=== PATIENT | male | born 1955 | race Asian ===

== ENCOUNTER 2022-10-08 19:17 | Inpatient (IN) | payer MEDICAID ==
[~2022-10-08] VITALS: Ht 160 cm; Wt 63.5 kg
[2022-10-08 19:35] VITALS: BP 168/86
--- NOTE | 2022-10-08 20:00 | NUR ---
MULTI LINE CLAIMS ADJUSTERFLIGHT DYNAMICIST NOTE ADMITTED THIS PATIENT DIRECTLY FROM [facility] VIA GURNEY WITH 2 EMT OF PRN AMBULANCE @ 193. PATIENT IS AMBULATORY. PATIENT IS AWAKE, ALERT AND ORIENTED X 4. INITIAL VS TAKEN FOLLOWS: TEMP 98.3, WI 91, RR 20, O2 SAT 100%, BP 168/86. BREATHING EVEN AND NONLABORED. NOT IN ANY FORM OF RESPIRATORY OR CARDIAC DISTRESS. DENIES ANY PAIN OR DISCOMFORT. WITH IV ACCESS ON LEFT AC 20g; PATENT, INTACT AND SALINE LOCKED. BODY AND SKIN ASSESSMENT DONE. SKIN IS INTACT. ABLE TO VERBALIZE NEEDS. INVENTORY OF PERSONAL BELONGINGS DONE. ORIENTED TO STAFF, ROOM AND UNIT. SAFETY PRECAUTIONS IMPLEMENTED: CALL LIGHT AND TABLE WITHIN REACH, SIDE RAILS UP X 3, BED IN LOWEST LOCKED POSITION. WILL CONTINUE TO MONITOR THROUGHOUT SHIFT. Addendum: 10/09/22 at 0352 by HARESH NAIK RN PATIENT PLACED ON EXTERNAL CARDIAC MONITORING WHICH READS SINUS RHYTHM WITH PVCs HR-85 BPM.
[2022-10-08] MEDS ORDERED: IV 1/2NS 1000 ML 1,000 ML IV PRN (21:30)
[2022-10-08] MEDS ORDERED: ACETAMINOPHEN 325 MG TABLET PO PRN (21:30)
[2022-10-08] MEDS ORDERED: ZOLPIDEM TARTRATE 5 MG TABLET PO PRN (21:30)
[2022-10-08] MEDS ORDERED: ONDANSETRON HCL/PF 4 MG/2 ML VIAL IVP PRN (21:30)
[2022-10-08] MEDS ORDERED: MAGNESIUM HYDROXIDE 30 ML UDC PO PRN (21:30)
[2022-10-08] MEDS ORDERED: MAG HYDROX/AL HYDROX/SIMETH 30 ML UDC PO PRN (21:30)
[2022-10-08] MEDS ORDERED: Z GUARD REMEDY 4 OZ OINT TP PRN (21:30)
[2022-10-08] MEDS: hydrALAZINE HCL 25 MG TABLET PO PRN (22:03)
--- NOTE | 2022-10-08 22:03 | NUR ---
RN Note BP 165/88 mm hg, HR-85. PRN Hydralazine 25 mg given po as ordered. Will continue to monitor.
[2022-10-08 22:12] LABS: CALCIUM, SERUM 9.2 mg/dL (8.5-10.1); POTASSIUM 4.6 mmol/L (3.5-5.1)
--- NOTE | 2022-10-08 22:45 | NUR ---
RN Note BP rechecked - 151/73 mm hg.
[2022-10-09] VITALS (7 sets, daily range): BP systolic 75–176; BP diastolic 41–95
[2022-10-09] MEDS ORDERED: DEXTROSE 50%-WATER 50 ML DISP.SYRIN IV PRN
[2022-10-09] MEDS: hydrALAZINE HCL 25 MG TABLET PO PRN (06:20)
--- NOTE | 2022-10-09 06:20 | NUR ---
RN Note BP 185/97 mm hg, HR-87. PRN Hydralazine 25 mg given po as ordered. Will continue to monitor.
[2022-10-09] MEDS: BLOOD SUGAR DIAGNOSTIC 1 EACH STRIP VI SCH ×4 (06:29→22:05)
--- NOTE | 2022-10-09 07:05 | NUR ---
LINER MACHINE OPERATOR HELPER CLOSING NOTE PATIENT IN BED; AWAKE, A/O X 4. STABLE ON ROOM AIR. BREATHING EVEN AND NONLABORED. IN NO ACUTE DISTRESS. NO C/O PAIN OR DISCOMFORT AT THIS TIME. WITH IV ACCESS ON LEFT AC 20g; PATENT AND INTACT INFUSING WITH 0.45% NS 1L RUNNING @ 75 ML/HR; FLUSHES WELL. ALL NEEDS ATTENDED. SAFETY PRECAUTIONS MAINTAINED: CALL LIGHT AND TABLE WITHIN REACH, SIDE RAILS UP X 3, BED IN LOWEST LOCKED POSITION. ENDORSED TO MORNING SHIFT FOR CONTINUITY OF CARE. Addendum: 10/09/22 at 0707 by HARESH NAIK RN ON EXTERNAL MALARIOLOGIST WHICH READS SR WITH PVCs HR-91 BPM.
[2022-10-09 07:29] LABS: BASOPHILS % (AUTO) 0.5 % (0.0-2.0); EOSINOPHILS % (AUTO) 2.1 % (0.0-6.0); HEMATOCRIT 35 % (39-51); HEMOGLOBIN 11.1 g/dL (13.5-17.5); LYMPHOCYTES # (AUTO) 2.5 K/uL (0.8-4.8); LYMPHOCYTES % (AUTO) 27.6 % (20.0-44.0); MEAN CORPUSCULAR HGB CONC 32 g/dl (31.0-36.0); MEAN CORPUSCULAR VOLUME 94 fL (80-96); MONOCYTES # (AUTO) 0.7 K/uL (0.1-1.30); MONOCYTES % (AUTO) 8.3 % (2.0-12.0); NEUTROPHILS # (AUTO) 5.5 K/uL (1.8-8.9); NEUTROPHILS % (AUTO) 61.5 % (43.0-81.0); PLATELET COUNT (AUTO) 280 K/uL (150-450); RED BLOOD CELL COUNT(AUTO) 3.68 MIL/uL (4.5-6.0)
--- NOTE | 2022-10-09 07:30 | NUR ---
OBJECT ORIENTED PROGRAMMER OPENING NOTE RECEIVED PATIENT AWAKE, LYING IN BED. PATIENT IS ON ROOM AIR, NO S/S OF DISTRESS OR SOB, AO X4. PT HAS IV ACCESS AT HIS LAC #20G WITH 0.45 NS AT 75 ML/HOUR INFUSING WELL. PATIENT HAS EXTERNAL RADIOLOGY PHYSICIAN ASSISTANT ATTACHED WITH PVC AND HR 92 BPM. BED LOCKED IN THE LOWEST POSITION. CALL LIGHT AND TABLE IN EASY REACH. SIDE RAILS UP X2. BED ALARM ON. WILL CONTINUE TO MONITOR CLOSELY FOR ANY REJI AND ASSIST PATIENT WITH IMMEDIATE NEEDS.
[2022-10-09 07:40] LABS: CALCIUM, SERUM 9.1 mg/dL (8.5-10.1); MAGNESIUM 2.1 mg/dL (1.8-2.4); POTASSIUM 4.5 mmol/L (3.5-5.1)
[2022-10-09 07:50] LABS: PHOSPHORUS 6.8 mg/dL (2.5-4.9)
[2022-10-09 07:51] LABS: THYROID STIMULATING HORMONE 2.711 uIU/mL (0.358-3.74)
[2022-10-09 07:52] LABS: CREATININE 7.8 mg/dL (0.6-1.3)
--- NOTE | 2022-10-09 08:00 | NUR ---
RN NOTE WRONG ENTRY ON THE ORTHOSTATIC BP VITAL SIGNS LONG FORM. KINDLY DISREGARD
[2022-10-09] MEDS: PANTOPRAZOLE 40 MG TABLET.DR PO SCH (08:25)
[2022-10-09] MEDS: AMLODIPINE BESYLATE 10 MG TABLET PO SCH (08:25)
[2022-10-09 12:14] LABS: BACTERIA,URINE Rare /HPF (None Seen); BILIRUBIN,URINE NEGATIVE (NEGATIVE); COLOR,URINE YELLOW (YELLOW); CREATININE, URINE 49.6 MG/DL (30.0-125.0); LEUKOCYTE ESTERASE ,URINE NEGATIVE (NEGATIVE); NITRITE, URINE NEGATIVE (NEGATIVE); PROTEIN,URINE 3+ mg/dl (NEGATIVE); RBC,URINE 0-2 /HPF (0-2); SQUAMOUS EPITHELIAL CELL,UR Few /HPF (None Seen); UGLUCOSE TRACE mg/dL (NEGATIVE); UROBILINOGEN,URINE 0.2 EU/dL (0.2); WBC,URINE 0-2 /HPF (0-3)
[2022-10-09] MEDS: IV 1/2NS 1000 ML 1,000 ML IV PRN ×2 (13:06→23:58)
--- NOTE | 2022-10-09 18:04 | NUR ---
RN NOTE PATIENT'S FAMILY IS REQUESTING AN UPDATE. INFORMED DR MENDIETA VIA TEXT TO CALL SUSY (BROTHER) THROUGH [phone].
--- NOTE | 2022-10-09 18:38 | NUR ---
SLEEPING CAR SERVICE ATTENDANT CLOSING NOTE PATIENT AWAKE, LYING IN BED. PATIENT IS IN ROOM AIR, NO S/S OF DISTRESS OR SOB, AO X3. PT HAS IV ACCESS AT HIS LAC #20G WITH 1/2 NS AT 100 ML/HOUR INFUSING WELL. . DRUG ENFORCEMENT AGENT ATTACHED WITH SINUS RHYTHM WITH PVC WITH HR AT 93BPM. ORTHOSTATIC BP TAKEN. ALL MEDICATIONS GIVEN. ALL NEEDS ATTENDED AND ANTICIPATED.ALL SAFETY MEASURES MAINTAINED: BED IN LOWEST AND LOCKED POSITION, SIDE RAILS UP X3. CALL LIGHT WITHIN REACH. BED ALARM ON. WILL ENDORSE TO PROTOCOL OFFICER NURSE.
--- NOTE | 2022-10-09 19:30 | NUR ---
DOCUMENTATION ANALYST OPENING NOTE RECEIVED PT AWAKE IN BED. A/O X4 AND ABLE TO MAKE NEEDS KNOWN. PT STABLE ON ROOM AIR. NO SOB OR S/S OS RESPIRATORY DISTRESS. BREATHING EVEN AND UNLABORED. ON EXTERNAL PUBLIC HEALTH SERVICE OFFICER READING SR WITH PVCS 97 BPM. IV ACCESS LAC 20G, INTACT AND PATENT, RUNNING 1/2 NS @ 75 ML/HR. SAFETY PRECAUTIONS IN PLACE. BED IN LOWEST LOCKED POSITION, HOB ELEVATED, SIDE RAILS UP X2, AND CALL LIGHT AND TABLE WITHIN REACH. ALL NEEDS MET AT THIS TIME.
[2022-10-09] MEDS: *INSULIN REGULAR(HUMULIN R)HUM 100 UNIT/ML VIAL SQ PRN (22:06)
[2022-10-10] VITALS (7 sets, daily range): BP systolic 127–180; BP diastolic 84–99
--- NOTE | 2022-10-10 00:42 | NUR ---
RN NOTE SEISMOGRAPH OBSERVER AT BEDSIDE FOR HD PLACEMENT.
[2022-10-10] MEDS: hydrALAZINE HCL 25 MG TABLET PO PRN ×2 (05:19→20:04)
--- NOTE | 2022-10-10 06:36 | NUR ---
CARE TRANSITIONS MANAGER CLOSING NOTE PT RESTING IN BED, VERBALLY RESPONSIVE. A/O X4 AND ABLE TO MAKE NEEDS KNOWN. PT STABLE ON ROOM AIR. NO SOB OR S/S OS RESPIRATORY DISTRESS. BREATHING EVEN AND UNLABORED. ON EXTERNAL OYSTER FARMER READING SR WITH PVCS 93 BPM. IV ACCESS LAC 20G, INTACT AND PATENT, RUNNING 1/2 NS @ 75 ML/HR. WITH RIJ HD CATH, DRESSING C/D/I. ALL DUE MEDS GIVEN ORDERED. SAFETY PRECAUTIONS IN PLACE AT ALL TIMES. BED IN LOWEST LOCKED POSITION, HOB ELEVATED, SIDE RAILS UP X2, AND CALL LIGHT AND TABLE WITHIN REACH. ALL NEEDS MET AT THIS TIME AND WILL ENDORSE TO ONCOMING NURSE FOR REJI.
--- NOTE | 2022-10-10 07:20 | NUR ---
MS RN RECEIVED ON BED, AWAKE,ALERT,ORIENTED X4,NOT IN ANY FORM OF DISTRESS,ON ROOM AIR, RESPIRATIONS EVEN AND UNLABORED,NO SOB NOTED, ACUTE KIDNEY INJURY, HEMODIALYSIS ACCESS AT RIGHT JUGULAR VEIN, FOR HEMODIALYSIS TODAY, WILL MONITOR PATIENT'S CONDITION,ALL NEEDS ATTENDED.
[2022-10-10] MEDS: BLOOD SUGAR DIAGNOSTIC 1 EACH STRIP VI SCH ×4 (07:58→21:04)
[2022-10-10] MEDS: PANTOPRAZOLE 40 MG TABLET.DR PO SCH (07:58)
--- NOTE | 2022-10-10 08:00 | NUR ---
MS [place] BREAKFAST SERVED,DUE MEDS GIVEN,TOLERATED WELL.
[2022-10-10 08:27] LABS: BASOPHILS % (AUTO) 0.4 % (0.0-2.0); EOSINOPHILS % (AUTO) 1.2 % (0.0-6.0); HEMATOCRIT 32 % (39-51); HEMOGLOBIN 10.6 g/dL (13.5-17.5); LYMPHOCYTES # (AUTO) 2.9 K/uL (0.8-4.8); LYMPHOCYTES % (AUTO) 22.9 % (20.0-44.0); MEAN CORPUSCULAR HGB CONC 33 g/dl (31.0-36.0); MEAN CORPUSCULAR VOLUME 92 fL (80-96); MONOCYTES % (AUTO) 7.5 % (2.0-12.0); NEUTROPHILS # (AUTO) 8.7 K/uL (1.8-8.9); PLATELET COUNT (AUTO) 275 K/uL (150-450); RED BLOOD CELL COUNT(AUTO) 3.48 MIL/uL (4.5-6.0); WHITE BLOOD COUNT (AUTO) 12.7 K/uL (4.3-11.0)
[2022-10-10 08:38] LABS: PHOSPHORUS 6.5 mg/dL (2.5-4.9); POTASSIUM 4.1 mmol/L (3.5-5.1)
[2022-10-10 08:39] LABS: CREATININE 7.7 mg/dL (0.6-1.3)
[2022-10-10] MEDS: AMLODIPINE BESYLATE 10 MG TABLET PO SCH (08:47)
[2022-10-10] MEDS ORDERED: CARV6.252 PO (11:32)
[2022-10-10] MEDS ORDERED: FEBU40TA3 PO (11:32)
[2022-10-10] MEDS ORDERED: FENO200C PO (11:32)
[2022-10-10] MEDS ORDERED: INSU100I26 SQ (11:32)
[2022-10-10] MEDS ORDERED: MULT-1215 PO (11:32)
[2022-10-10] MEDS ORDERED: LINA5TAB PO (11:32)
[2022-10-10] MEDS ORDERED: SODI650T PO (11:32)
[2022-10-10] MEDS ORDERED: [UNRECOGNIZED DRUG - OTHER] PO (11:34)
--- NOTE | 2022-10-10 16:00 | NUR ---
ms tax attorney done w/ 1 liter out, tolerated well.
--- NOTE | 2022-10-10 19:08 | NUR ---
RN opening notes Pt is sitting in bed comfortably watching TV. Pt is alert and orientedX4. Pt speaks Tagalog and able to make needs known. On room air. no SOB. No S/s of distress noted. IV site at LAC# 20 is clean, intact and flushes well. RIJ HD cath is inplaced, clean, dry and intact. tele monitor showed S. tachy 110. Pt is able to ambulates with a steady gait. Safety precautions is maintained. Bed at low position, brakes locked, hob elevated, side rails upX2, and call light is within reach. will continue to monitor.
--- NOTE | 2022-10-10 20:04 | NUR ---
RN notes Pt's BP 180/92 Hr at 107. administered hydralazine/po/prn as ordered for high BP. will continue to monitor.
[2022-10-10] MEDS: *INSULIN REGULAR(HUMULIN R)HUM 100 UNIT/ML VIAL SQ PRN (21:06)
[2022-10-11] VITALS (8 sets, daily range): BP systolic 141–180; BP diastolic 68–94
--- NOTE | 2022-10-11 | NUR ---
RN notes Pt's BP 151/89. Hr at 109.
[2022-10-11] MEDS: hydrALAZINE HCL 25 MG TABLET PO PRN ×2 (04:16→16:42)
--- NOTE | 2022-10-11 04:19 | NUR ---
RN notes Pt's BP 180/94 HR at 103. administered hydralazine/po as ordered for high BP. Will continue to monitor.
--- NOTE | 2022-10-11 04:54 | NUR ---
RN notes Pt's BP 141/68. HR 102 after hydralazine.
[2022-10-11] MEDS: BLOOD SUGAR DIAGNOSTIC 1 EACH STRIP VI SCH ×4 (06:13→22:30)
[2022-10-11 06:14] LABS: BASOPHILS % (AUTO) 0.4 % (0.0-2.0); EOSINOPHILS % (AUTO) 1.4 % (0.0-6.0); HEMATOCRIT 32 % (39-51); HEMOGLOBIN 10.7 g/dL (13.5-17.5); LYMPHOCYTES # (AUTO) 2.6 K/uL (0.8-4.8); LYMPHOCYTES % (AUTO) 24.7 % (20.0-44.0); MEAN CORPUSCULAR HGB CONC 33 g/dl (31.0-36.0); MEAN CORPUSCULAR VOLUME 93 fL (80-96); MONOCYTES % (AUTO) 9.9 % (2.0-12.0); NEUTROPHILS # (AUTO) 6.7 K/uL (1.8-8.9); NEUTROPHILS % (AUTO) 63.6 % (43.0-81.0); PLATELET COUNT (AUTO) 261 K/uL (150-450); RED BLOOD CELL COUNT(AUTO) 3.48 MIL/uL (4.5-6.0); WHITE BLOOD COUNT (AUTO) 10.5 K/uL (4.3-11.0)
[2022-10-11] MEDS: INSULIN REGULAR, HUMAN 100 UNIT/ML 3 ML VIAL SQ PRN ×2 (06:14→17:00)
--- NOTE | 2022-10-11 06:30 | NUR ---
RN closing notes Pt is resting in bed comfortaly. Pt is alert and orientedX4. Pt speaks Tagalog and able to make needs known. On room air. no SOB. No S/s of distress noted. IV site at LAC# 20 is clean, intact and flushes well. RIJ HD cath is inplaced, clean, dry and intact. tele monitor showed Stachy hr at 102. Routine meds were given as ordered. Kept Pt clean, dry and comfortable. Safety precautions is maintained. Bed at low position, brakes locked, hob elevated, side rails upX2, and call light is within reach. will endorse to am nurse for REJI.
[2022-10-11 06:40] LABS: CALCIUM, SERUM 9.1 mg/dL (8.5-10.1); CREATININE 5.8 mg/dL (0.6-1.3); MAGNESIUM 1.8 mg/dL (1.8-2.4); POTASSIUM 3.5 mmol/L (3.5-5.1)
--- NOTE | 2022-10-11 07:10 | NUR ---
received on bed, awake,alert, oriented x4,not in any form of distress, respirations even and unlabored,no sob noted, lungs are clear,abdomen soft,positive bowel sounds ,denies pain at this time, hd patient, will have hd today.
[2022-10-11] MEDS: PANTOPRAZOLE 40 MG TABLET.DR PO SCH (08:15)
--- NOTE | 2022-10-11 08:20 | NUR ---
ms shah breakfast served,due meds given ,tolerated well.
[2022-10-11] MEDS: AMLODIPINE BESYLATE 10 MG TABLET PO SCH (09:00)
--- NOTE | 2022-10-11 09:00 | NUR ---
ms rn amlodipine held, patient on hd at this time.
--- NOTE | 2022-10-11 15:30 | NUR ---
ms rn on bed, report tgiven to Monique shah for maday.
--- NOTE | 2022-10-11 16:00 | NUR ---
RN NOTES; REJI RECEIVED REPORT FROM LEEANNE DOMINGUEZ FOR REJI. PT IS AWAKE, A/OX4. ON RA WITH NO S/S OF SOB. DENIES PAIN AT THIS TIME. S/P HD, OUTPUT = 500CC. TELE READS STACH 101 WITH PVCS. IV ACCESS AT L AC# 20, SL, INTACT AND PATENT. PT IS AMBULATORY, ALL SAFETY MEASURES IN PLACE, CALL LIGHT AND TABLE WITHIN EASY REACH; WILL CONT TO MONITOR.
--- NOTE | 2022-10-11 19:58 | NUR ---
SAP TREASURY CONSULTANT CLOSING NOTES: PT IS AWAKE, A/OX4. ON RA WITH NO S/S OF SOB. PT REMAINS STABLE. ALL SAFETY MEASURES IN PLACE, ENDORSED TO PM SHIFT.
--- NOTE | 2022-10-11 20:00 | NUR ---
TELE STAVE LOG RIPSAW OPERATOR INITIAL NOTES, Received a male [place] patient in bed awake and alert no signs of any acute distress noted.Denies any pain or any discomfort. Re- oriented him how to used the call light system and encourage him to use if he needs some help or needs the nurse. he also on tele Sinus Tach with PVC . Kept him warm and comfortable at all times. Bed in low and lock in position with side rails x2 up and bed alarm set for safety. Place call light at reach.
[2022-10-11] MEDS: *INSULIN REGULAR(HUMULIN R)HUM 100 UNIT/ML VIAL SQ PRN (22:33)
--- NOTE | 2022-10-11 22:34 | NUR ---
tele roof mechanic notes blood sugar checked 139, Insulin 2 units given zohreh SQ as ordered. Pt eating his food brought by his family . No signs of hyper/hypo glycemia noted. will continue monitoring.
[2022-10-12] VITALS: BP 128/76
[2022-10-12 04:00] VITALS: BP 121/80
[2022-10-12 05:54] LABS: BASOPHILS # (AUTO) 0.1 K/uL (0.0-0.2); BASOPHILS % (AUTO) 0.6 % (0.0-2.0); EOSINOPHILS % (AUTO) 1.7 % (0.0-6.0); HEMATOCRIT 31 % (39-51); HEMOGLOBIN 10.4 g/dL (13.5-17.5); LYMPHOCYTES # (AUTO) 3.2 K/uL (0.8-4.8); LYMPHOCYTES % (AUTO) 29.8 % (20.0-44.0); MEAN CORPUSCULAR HGB CONC 33 g/dl (31.0-36.0); MEAN CORPUSCULAR VOLUME 91 fL (80-96); MONOCYTES # (AUTO) 1.1 K/uL (0.1-1.30); MONOCYTES % (AUTO) 9.9 % (2.0-12.0); NEUTROPHILS # (AUTO) 6.3 K/uL (1.8-8.9); PLATELET COUNT (AUTO) 241 K/uL (150-450); RED BLOOD CELL COUNT(AUTO) 3.42 MIL/uL (4.5-6.0); WHITE BLOOD COUNT (AUTO) 10.8 K/uL (4.3-11.0)
[2022-10-12 06:13] LABS: CALCIUM, SERUM 9.2 mg/dL (8.5-10.1); CREATININE 5.7 mg/dL (0.6-1.3); POTASSIUM 3.9 mmol/L (3.5-5.1)
--- NOTE | 2022-10-12 06:55 | NUR ---
tele manhole builder closing notes Pt checked and seen in bed resting but he's awake , blood sugar checked done 126. no insulin due at this time. Pt stable throughout the night. Sinus tach on tele monitor. Kept him warm and comfortable at all times. Pt still request to have a shower today. kept him warm and comfortable at all times. Place call light at reach. Will endorse to am nurse for continuity of care.
[2022-10-12 06:57] VITALS: BP 142/74
--- NOTE | 2022-10-12 07:23 | NUR ---
RN OPENING NOTE RECEIVED PATIENT IN BED, AWAKE, A/O X4, VERBALLY RESPONSIVE AND ABLE TO MAKE NEEDS KNOWN. NO SIGNS OF ACUTE DISTRESS NOTED. ON ROOM AIR, TOLERATING WELL. NO SOB NOTED, BREATHING EVEN NAD UNLABORED. ON CARDIAC MONITORING SHOWING SINUS RHYTHM WITH OCCASIONAL PVC'S, HR @94. WITH IV ACCESS ON LEFT ANTECUBITAL AREA #20G, INTACT AND PATENT, SL. HD CATH ON RIGHT IJ INTACT WITH DRESSING C/D/I. SAFETY MEASURE IN PLACE, BED IN LOW AND LOCKED POSITION, SIDE RAILS UP X2, CALL LIGHT AND TABLE PLACED WITHIN EASY REACH. WILL CONTINUE TO MONITOR PATIENT.
[2022-10-12] MEDS: BLOOD SUGAR DIAGNOSTIC 1 EACH STRIP VI SCH ×4 (07:54→21:31)
[2022-10-12 08:00] VITALS: BP 165/83
[2022-10-12] MEDS: AMLODIPINE BESYLATE 10 MG TABLET PO SCH (08:21)
[2022-10-12] MEDS: PANTOPRAZOLE 40 MG TABLET.DR PO SCH (08:21)
[2022-10-12] MEDS: INSULIN REGULAR, HUMAN 100 UNIT/ML 3 ML VIAL SQ PRN ×2 (11:43→16:47)
--- NOTE | 2022-10-12 14:40 | NUR ---
RN NOTE HEMODIALYSIS DONE TODAY. 500 ML OF FLUIDS REMOVED. PATIENT TOLERATED PROCEDURE WELL.
[2022-10-12 16:00] VITALS: BP 152/84
--- NOTE | 2022-10-12 18:50 | NUR ---
RN CLOSING NOTE PATIENT IN BED, AWAKE, A/O X4, VERBALLY RESPONSIVE AND ABLE TO MAKE NEEDS KNOWN. NO SIGNS OF ACUTE DISTRESS NOTED. REMAINS STABLE ON ROOM AIR, NO SOB NOTED, BREATHING EVEN NAD UNLABORED. CONTINUE ON CARDIAC MONITORING SHOWING SINUS RHYTHM WITH OCCASIONAL PVC'S, HR @98. IV ACCESS ON LEFT ANTECUBITAL AREA #20G, INTACT AND PATENT, SL. HD CATH ON RIGHT IJ INTACT WITH DRESSING C/D/I. SAFETY MEASURE MAINTAINED, BED IN LOW AND LOCKED POSITION, SIDE RAILS UP X2, CALL LIGHT AND TABLE PLACED WITHIN EASY REACH. WILL ENDORSE TO NEXT SHIFT FOR CONTINUITY OF CARE.
--- NOTE | 2022-10-12 19:20 | NUR ---
REPORTING PROCESS CONSULTANT OPENING NOTE RECEIVED PATIENT FROM AM NURSE; PATIENT AWAKE IN BED, A/O X 4, ABLE TO MAKE NEEDS KNOWN; STABLE ON ROOM AIR, BREATHING EVENLY AND NO S/S OF DISTRESS NOTED; HOOKED ON TELE MONITORING SINUS RHYTHM 90S BPM; WITH IV ACCESS ON LAC G#20 SALINE LOCK; WITH HD CATH ON RIGHT IJ, INTACT C/D/I; ENCOURAGED VERBALIZATION OF NEEDS; SAFETY MEASURES IMPLEMENTED, BED LOCKED IN LOWEST POSITION, SIDE RAILS UP X 2, CALL LIGHT AND TABLE WITHIN REACH; WILL CONTINUE TO MONITOR THROUGHOUT SHIFT
[2022-10-12 20:00] VITALS: BP 156/76
[2022-10-12] MEDS: *INSULIN REGULAR(HUMULIN R)HUM 100 UNIT/ML VIAL SQ PRN (21:37)
--- NOTE | 2022-10-12 22:00 | NUR ---
FIRST OFFICER AND FLIGHT INSTRUCTOR NOTE ACCUCHECK WAS DONE AND PATIENT'S BLOOD SUGAR WAS 184. 3 UNITS OF REGULAR INSULIN WAS ADMINISTERED PER SLIDING SCALE. PATIENT TOLERATED WELL
[2022-10-13] VITALS (7 sets, daily range): BP systolic 145–193; BP diastolic 73–98
[2022-10-13 05:59] LABS: BASOPHILS % (AUTO) 0.4 % (0.0-2.0); EOSINOPHILS % (AUTO) 1.6 % (0.0-6.0); HEMATOCRIT 33 % (39-51); HEMOGLOBIN 10.9 g/dL (13.5-17.5); LYMPHOCYTES # (AUTO) 2.2 K/uL (0.8-4.8); LYMPHOCYTES % (AUTO) 19.2 % (20.0-44.0); MEAN CORPUSCULAR HGB CONC 33 g/dl (31.0-36.0); MEAN CORPUSCULAR VOLUME 92 fL (80-96); MONOCYTES # (AUTO) 1.2 K/uL (0.1-1.30); MONOCYTES % (AUTO) 10.4 % (2.0-12.0); NEUTROPHILS # (AUTO) 7.7 K/uL (1.8-8.9); NEUTROPHILS % (AUTO) 68.4 % (43.0-81.0); PLATELET COUNT (AUTO) 244 K/uL (150-450); RED BLOOD CELL COUNT(AUTO) 3.56 MIL/uL (4.5-6.0); WHITE BLOOD COUNT (AUTO) 11.3 K/uL (4.3-11.0)
[2022-10-13 06:05] LABS: CALCIUM, SERUM 9.2 mg/dL (8.5-10.1); CREATININE 5.1 mg/dL (0.6-1.3); POTASSIUM 3.4 mmol/L (3.5-5.1)
[2022-10-13] MEDS: BLOOD SUGAR DIAGNOSTIC 1 EACH STRIP VI SCH ×4 (06:45→22:00)
--- NOTE | 2022-10-13 06:55 | NUR ---
MANAGER RECRUITING CLOSING NOTE PATIENT RESTING IN BED, A/O X 4, ABLE TO MAKE NEEDS KNOWN; STABLE ON ROOM AIR, BREATHING EVENLY AND NO S/S OF DISTRESS NOTED; HOOKED ON TELE MONITORING SINUS RHYTHM 90S BPM; WITH IV ACCESS ON LAC G#20 SALINE LOCK; WITH HD CATH ON RIGHT IJ, INTACT C/D/I; ADMINISTERED MEDICATIONS PRESCRIBED; PATIENT'S NEEDS ATTENDED; MONITORED PATIENT ACCORDINGLY; SAFETY MEASURES IMPLEMENTED, BED LOCKED IN LOWEST POSITION, SIDE RAILS UP X 2, CALL LIGHT AND TABLE WITHIN REACH; WILL ENDORSE TO AM NURSE FOR REJI.
--- NOTE | 2022-10-13 07:26 | NUR ---
CROP OR GRAIN FARMWORKER OPENING NOTE PATIENT RESTING IN BED, EASILY AROUSED BY VERBAL STIMULI. ABLE TO MAKE NEEDS KNOWN; ON ROOM AIR, BREATHING EVENLY AND NO S/S OF DISTRESS NOTED; HOOKED ON TELE MONITORING SINUS RHYTHM 95 BPM; WITH IV ACCESS ON LAC G#20 SALINE LOCK; WITH HD CATH ON RIGHT IJ, INTACT C/D/I; SAFETY MEASURES IMPLEMENTED, BED LOCKED IN LOWEST POSITION, SIDE RAILS UP X 2, CALL LIGHT AND TABLE WITHIN REACH; WILL CONTINUE TO MONITOR.
[2022-10-13] MEDS: PANTOPRAZOLE 40 MG TABLET.DR PO SCH (08:15)
[2022-10-13] MEDS: AMLODIPINE BESYLATE 10 MG TABLET PO SCH (09:27)
[2022-10-13] MEDS: INSULIN REGULAR, HUMAN 100 UNIT/ML 3 ML VIAL SQ PRN (11:44)
--- NOTE | 2022-10-13 18:46 | NUR ---
SPIKE MACHINE OPERATOR CLOSING NOTE PATIENT AWAKE IN BED, A/OX4. EASILY AROUSED BY VERBAL STIMULI. ABLE TO MAKE NEEDS KNOWN; ON ROOM AIR, BREATHING EVENLY AND NO S/S OF DISTRESS NOTED; HOOKED ON TELE MONITORING SINUS RHYTHM 98 BPM; WITH IV ACCESS ON LAC G#20 SALINE LOCK; WITH HD CATH ON RIGHT IJ, INTACT C/D/I; S/P HD TODAY, NO COMPLICATIONS NOTED. SAFETY MEASURES IMPLEMENTED, BED LOCKED IN LOWEST POSITION, SIDE RAILS UP X 2, CALL LIGHT AND TABLE WITHIN REACH; WILL ENDORSED TO NIGHT NURSE
--- NOTE | 2022-10-13 19:35 | NUR ---
TELERN FULLY AWAKE, NO DISCOMFORTS OF THIS TIME. STATED HE WAS DIALIZED EARLIER TODAY. FLUIDS RESTRICTED, EAGER TO GO HOME. PENDING CHAIR TIME FOR US RENAL. NO NEEDS MADE, CONTINUED MONITORING. SAFETY PRECAUTIONS EMPHASIZED, WELL UNDERSTOOD.REMINDED TO CALL STAFF FOR ANY ASSISTANCE OR DISCOMFORTS. CALL LIGHT WITHIN REACH.
--- NOTE | 2022-10-13 23:00 | NUR ---
TELERN BS 128 NO COVERAGE FOR NOW. SNACKS PROVIDED.
[2022-10-14] MEDS: hydrALAZINE HCL 25 MG TABLET PO PRN ×2 (00:16→21:57)
--- NOTE | 2022-10-14 06:07 | NUR ---
TELERN SR ON THE MONITOR. NO NEEDS MADE. BS 111, ANXIOUS TO GO HOME
[2022-10-14 06:25] LABS: BASOPHILS # (AUTO) 0.1 K/uL (0.0-0.2); BASOPHILS % (AUTO) 0.9 % (0.0-2.0); EOSINOPHILS % (AUTO) 2.1 % (0.0-6.0); HEMATOCRIT 32 % (39-51); HEMOGLOBIN 10.9 g/dL (13.5-17.5); LYMPHOCYTES # (AUTO) 2.9 K/uL (0.8-4.8); LYMPHOCYTES % (AUTO) 25.4 % (20.0-44.0); MEAN CORPUSCULAR HGB CONC 34 g/dl (31.0-36.0); MEAN CORPUSCULAR VOLUME 90 fL (80-96); MONOCYTES # (AUTO) 1.1 K/uL (0.1-1.30); NEUTROPHILS # (AUTO) 6.9 K/uL (1.8-8.9); NEUTROPHILS % (AUTO) 61.6 % (43.0-81.0); PLATELET COUNT (AUTO) 250 K/uL (150-450); RED BLOOD CELL COUNT(AUTO) 3.59 MIL/uL (4.5-6.0); WHITE BLOOD COUNT (AUTO) 11.2 K/uL (4.3-11.0)
[2022-10-14 06:44] LABS: CALCIUM, SERUM 9.4 mg/dL (8.5-10.1); CREATININE 5.6 mg/dL (0.6-1.3); POTASSIUM 3.8 mmol/L (3.5-5.1)
[2022-10-14 07:00] VITALS: BP 152/98
[2022-10-14] MEDS: BLOOD SUGAR DIAGNOSTIC 1 EACH STRIP VI SCH ×4 (07:36→21:51)
[2022-10-14] MEDS: AMLODIPINE BESYLATE 10 MG TABLET PO SCH (08:30)
[2022-10-14] MEDS: PANTOPRAZOLE 40 MG TABLET.DR PO SCH (08:31)
[2022-10-14] MEDS: INSULIN REGULAR, HUMAN 100 UNIT/ML 3 ML VIAL SQ PRN ×2 (11:38→17:42)
[2022-10-14] MEDS ORDERED: LIDOCAINE HCL/MPF 1% 30 ML VIAL IJ ONE (13:09)
[2022-10-14] MEDS ORDERED: IOHEXOL 0 ML IV ONE (13:10)
[2022-10-14] MEDS ORDERED: HEPARIN SODIUM, PORCINE 1,000 UNIT/ML VIAL ONE (13:10)
[2022-10-14] MEDS ORDERED: KETAMINE HCL IN 0.9 % NACL 5 ML ONE (15:46)
[2022-10-14] MEDS ORDERED: LIDOCAINE 1% INJ 50 ML MDV IJ ONE (15:51)
--- NOTE | 2022-10-14 17:55 | NUR ---
END OF SHIFT SUMMARY PATIENT IS A/O X4. AMBULATORY. INDEPENDENT WITH REPOSITIONING. HD DONE TODAY. SR ON TELE. S/P PERMACATH PLACEMENT. OKAY TO USE LINE PER DR. HUYNH. RESUMED DIET. PATIENT CAME BACK FROM SURGERY WITH L FOOT IV ACCESS. CHAIRTIME AT RENAL M,W,F. SAFETY MEASURES MAINTAINED. BED IN LOWEST POSITION, BRAKES LOCKED. SIDE RAILS UP X2. CALL LIGHT WITHIN REACH. WILL ENDORSE CONTINUITY OF CARE TO ONCOMING SHIFT.
--- NOTE | 2022-10-14 19:30 | NUR ---
BOAT PILOT OPENING NOTES RECEIVED PATIENT IN BED AWAKE, ALERT AND ORIENTED. A/O X 4. ABLE TO MAKE NEEDS KNOWN. ON ROOM AIR, BREATHING EVEN AND UNLABORED, NO SIGNS OF DISTRESS OR SOB NOTED. ON TELE MONITOR WITH CURRENT READING OF SINUS RHYTHM OF 99. IV ACCESS @ LEFT FOOT, FLUSHING WELL AND HD CATH ON RIGHT IJ, DRY AND INTACT. SAFETY MEASURES IN PLACE WITH BED IN LOWEST LOCKED POSITION. SIDE RAILS UP X 2. CALL LIGHT AND TABLE WITHIN EASY REACH. WILL CONTINUE WITH THE PLAN OF CARE.
[2022-10-14 20:00] VITALS: BP 142/77
[2022-10-14] MEDS: *INSULIN REGULAR(HUMULIN R)HUM 100 UNIT/ML VIAL SQ PRN (22:05)
[2022-10-14 22:30] VITALS: BP 150/90
[2022-10-15] VITALS: BP 144/98
[2022-10-15] MEDS: ANCEF 1 GM/50 ML D5W IV SCH ×4 (00:47→09:20)
[2022-10-15 04:00] VITALS: BP 151/83
[2022-10-15] MEDS: BLOOD SUGAR DIAGNOSTIC 1 EACH STRIP VI SCH ×2 (06:33→14:00)
[2022-10-15] MEDS: INSULIN REGULAR, HUMAN 100 UNIT/ML 3 ML VIAL SQ PRN (06:34)
--- NOTE | 2022-10-15 06:55 | NUR ---
SQUEEGEE TENDER CLOSING NOTES PATIENT IN BED RESTING COMFORTABLY. EASILY AWAKEN BY VERBAL STIMULI. A/O X 4. ABLE TO MAKE NEEDS KNOWN. ON ROOM AIR, BREATHING EVEN AND UNLABORED, NO SIGNS OF DISTRESS OR SOB NOTED. ON TELE MONITOR WITH CURRENT READING OF SINUS RHYTHM OF 90. IV ACCESS @ LEFT FOOT, FLUSHING WELL AND HD CATH ON RIGHT IJ, DRY AND INTACT. SAFETY MEASURES MAINTAINED DURING SHIFT. ALL NEEDS ATTENDED. WILL ENDORSE TO THE NEXT SHIFT.
[2022-10-15 07:00] VITALS: BP 144/73
[2022-10-15 07:26] LABS: BASOPHILS # (AUTO) 0.1 K/uL (0.0-0.2); BASOPHILS % (AUTO) 0.4 % (0.0-2.0); HEMATOCRIT 31 % (39-51); HEMOGLOBIN 10.2 g/dL (13.5-17.5); LYMPHOCYTES # (AUTO) 2.3 K/uL (0.8-4.8); LYMPHOCYTES % (AUTO) 15.9 % (20.0-44.0); MEAN CORPUSCULAR HGB CONC 33 g/dl (31.0-36.0); MEAN CORPUSCULAR VOLUME 92 fL (80-96); MONOCYTES # (AUTO) 1.3 K/uL (0.1-1.30); MONOCYTES % (AUTO) 9.1 % (2.0-12.0); NEUTROPHILS # (AUTO) 10.6 K/uL (1.8-8.9); NEUTROPHILS % (AUTO) 73.6 % (43.0-81.0); PLATELET COUNT (AUTO) 242 K/uL (150-450); RED BLOOD CELL COUNT(AUTO) 3.38 MIL/uL (4.5-6.0); WHITE BLOOD COUNT (AUTO) 14.4 K/uL (4.3-11.0)
--- NOTE | 2022-10-15 07:27 | NUR ---
OPENING NOTE PATIENT RESTING WITH VISIBLE CHEST EXTENSION, ABUSABLE TO VERBAL STIMULI. A/Ox4 ON ROOM AIR, NO S/S OF SOB OR DISTRESS AT THIS TIME. TELE EXTERNAL MONITOR READING SR IN 90. SKIN INTACT AND WARM TO TOUCH. AMBULATORY, CONTINENT: BRP. PATIENT HAS BILATERAL CLEAR LUNG SOUNDS, ACTIVE BOWEL SOUNDS AND CAPILLARY REFILL <3. NO PAIN OR S/S OF PAIN. FALL AND SAFETY PRECAUTIONS IN PLACE BED LOCKED AND AT THE LOWEST POSITION, SRx2 AND CALL LIGHT WITHIN REACH. Addendum: 10/15/22 at 0800 by PEEWEE MANSFIELD LVN ADD IV ACCESS ON THE L FOOT INTACT AND PATENT, FLUSHING WELL.
[2022-10-15 07:44] LABS: CALCIUM, SERUM 9.1 mg/dL (8.5-10.1); POTASSIUM 4.2 mmol/L (3.5-5.1)
[2022-10-15 08:57] VITALS: BP 144/73
[2022-10-15] MEDS: AMLODIPINE BESYLATE 10 MG TABLET PO SCH (08:57)
[2022-10-15] MEDS: PANTOPRAZOLE 40 MG TABLET.DR PO SCH (08:57)
[2022-10-15] MEDS ORDERED: AMLO10TA4 PO (14:56)
[2022-10-15] MEDS ORDERED: ZOLP10TA2 PO (14:56)
[2022-10-15] MEDS ORDERED: FENOFIBRATE NANOCRYS (145 MG) 145 MG TABLET PO SCH (15:00)
[2022-10-15] MEDS ORDERED: LINAGLIPTIN 5 MG TABLET PO SCH (15:00)
--- NOTE | 2022-10-15 15:45 | NUR ---
MEDICATION NOTE PATIENT NEEDED TO PROVIDED HOME MEDICATION: TRADJENTA AND TRICOR. PATIENT HAD ORDER FOR DISCHARGED. MEDICATION WEREN'T BEING BROUGHT IN FROM HOME.
--- NOTE | 2022-10-15 16:10 | NUR ---
DISCHARGE NOTE PATIENT BEING DISCHARGED IN A MEDICALLY STABLE CONDITION. A/O x4. IV ACCESS REMOVED, CATHETER TIP WAS INTACT, PRESSURE DRESSING WAS APPLIED, NO S/S OF ACTIVE BLEEDING. NAME BAND WAS REMOVED. EXTERNAL DRIVER EXAMINER WAS REMOVED AND RETURNED TO TELE. SKIN INTACT. ALL BELONGING ACCOUNTED FOR AND BELONGING SHEET WAS SIGNED, PLACED IN CHART. HEALTH TEACHING AND DISCHARGE INSTRUCTIONS GIVEN AND VERBALIZED UNDERSTANDING. PATIENT LEFT VIA WHEELCHAIR WITH NO S/S OF DISTRESS, ACCOMPANIED BY CATTLE FEEDER AND HIS SISTER TO THE LOBBY. CHARGE NURSE AWARE OF DISCHARGE.
[2022-10-16] MEDS ORDERED: FEBUXOSTAT 40 MG PO SCH (09:00)
[2022-10-16] MEDS ORDERED: MULTIVIT W/MINERALS 1 TAB TABLET PO SCH (09:00)
== END 2022-10-15 15:30 | disposition home or self-care (01) | DRG 199 ==
LOC: TELE 19:27
PROVIDERS: ADMIT Student in an Organized Health Care Education/Training Program; ATTEND Nurse Practitioner Acute Care
PROC: 05HM33Z Insertion of Infusion Device into Right Internal Jugular Vein, Percutaneous Approach (ICD-10-PCS; principal; 2022-10-10)
PROC: B543ZZA Ultrasonography of Right Jugular Veins, Guidance (ICD-10-PCS; 2022-10-10)
PROC: 5A1D70Z Performance of Urinary Filtration, Intermittent, Less than 6 Hours Per Day (ICD-10-PCS; 2022-10-10)
PROC: 0JH63XZ Insertion of Tunneled Vascular Access Device into Chest Subcutaneous Tissue and Fascia, Percutaneous Approach (ICD-10-PCS; 2022-10-14)
PROC: 05HM33Z Insertion of Infusion Device into Right Internal Jugular Vein, Percutaneous Approach (ICD-10-PCS; 2022-10-14)
PROC: B513YZA Fluoroscopy of Right Jugular Veins using Other Contrast, Guidance (ICD-10-PCS; 2022-10-14)
DX: I16.0 Hypertensive urgency (principal); N17.0 Acute kidney failure with tubular necrosis; D63.8 Anemia in other chronic diseases classified elsewhere; E83.39 Other disorders of phosphorus metabolism; E11.22 Type 2 diabetes mellitus with diabetic chronic kidney disease; D64.9 Anemia, unspecified; E11.65 Type 2 diabetes mellitus with hyperglycemia; E87.6 Hypokalemia; I12.9 Hypertensive chronic kidney disease with stage 1 through stage 4 chronic kidney disease, or unspecified chronic kidney disease; N18.9 Chronic kidney disease, unspecified; Z79.84 Long term (current) use of oral hypoglycemic drugs; Z79.899 Other long term (current) drug therapy; Z99.2 Dependence on renal dialysis; Z79.4 Long term (current) use of insulin
CPT/HCPCS: 36415; 71045-TC; 76770-TC; 80048-TC; 80061-TC; 81001; 82570-TC; 82962-TC; 83735-TC; 84100-TC; 84300-TC; 84443-TC; 85025-TC; 86704; 86705; 86706; 86803; 87081-TC; 87340; 90935-TC; 93307-TC; 97116-TC; 97530-TC; A4223; C1750; G0378; J0690; J1100; J1644; J1815; J2370; J2704; J2765; J3490; J7030; J7050; J7060; Q9967